=== PATIENT | female | born 1985 | race Caucasian/White ===

== ENCOUNTER → 2023-11-18 | Outpatient (CLI) | payer OTHER ==
--- NOTE | 2023-11-18 12:47 | MR ---
EXAMINATION TYPE: MR cspine/lspine wo con DATE OF EXAM: 11/18/2023 COMPARISON: None HISTORY: Neck and lower back pain/stiffness, headaches, BUE/BLE radiculopathy. Hx of injuries. CONTRAST: Performed utilizing 0 mL intravenous Gadavist gadolinium contrast. TECHNIQUE: Multiplanar multiecho imaging on a 3.0 Iqra magnet is performed through the cervical spin e. FINDINGS: The craniovertebral junction is normal. Vertebral body alignment is normal. C7-T1: No focal disc herniation or significant disc bulge is evident. No spinal canal stenosis or n eural foraminal stenosis is present. C6-7: No focal disc herniation or significant disc bulge is evident. No spinal canal stenosis or colby ral foraminal stenosis is present. C5-6: There is broad-based left paracentral disc bulging with mild to moderate anterior thecal sac co mpression. No cord contact is evident. There may be some mild cord deformity on the left. Neural fora men are patent.. C4-5: No focal disc herniation or significant disc bulge is evident. No spinal canal stenosis or colby ral foraminal stenosis is present. C3-4: There is a central disc bulge with moderate anterior thecal sac compression. This may have cord contact. No cord deformity is evident. No spinal canal stenosis is present. Neural foramen are paten t.. C2-3: Minimal central disc bulge is present with mild anterior thecal sac compression. No cord contac t is evident. No spinal canal stenosis or neural foraminal stenosis is present.. IMPRESSION: 1. Moderate broad left paracentral disc bulge at C5-6 with moderate thecal sac compression. Some mild cord deformity may be present. 2. Central disc bulge with moderate anterior thecal sac compression C3-4 may have cord contact withou t cord deformity. 3. Minimal C2-3 central disc bulge without cord contact or spinal canal stenosis. EXAMINATION TYPE: MR andrez/jacqueline wo con DATE OF EXAM: 11/18/2023 COMPARISON: HISTORY: Neck and lower back pain/stiffness, headaches, BUE/BLE radiculopathy. Hx of injuries. CONTRAST: 0 mL intravenous Gadavist. TECHNIQUE: Multiplanar, multisequence images of the lumbar spine were acquired. FINDINGS: Cord terminates at the L1 level. Vertebral body alignment is preserved. Disc heights are p reserved. Disc desiccation is present L3-4 mild L4-5. L5-S1: No significant disc bulge or disc herniation. No spinal canal stenosis. No foraminal stenosi s. L4-L5: No significant disc bulge or disc herniation. No spinal canal stenosis. No foraminal stenosi s. Minimal ligamentum flavum laxity is present without significant thecal sac compression. L3-L4: No significant disc bulge or disc herniation. No spinal canal stenosis. No foraminal stenosi s. Ligamentum flavum laxity is present with minimal right posterior lateral thecal sac compression. L2-L3: No significant disc bulge or disc herniation. No spinal canal stenosis. No foraminal stenosi s. L1-L2: No significant disc bulge or disc herniation. No spinal canal stenosis. No foraminal stenosi s. T12-L1: No significant disc bulge or disc herniation. No spinal canal stenosis. No foraminal stenos is. IMPRESSION: 1. No acute changes MRI lumbar spine. 2. Minimal ligamentum flavum laxity without significant thecal sac compression L3-4 L4-5. Minimal dis c desiccation is present at these levels as well. [facility], Workstation: [facility], 11/18/2023 12:45 PM
== END | disposition home or self-care (01) ==
LOC: RADMRIMAIN 10:24
PROVIDERS: ATTEND Family Medicine
DX: R51.9 Headache, unspecified (principal); M50.10 Cervical disc disorder with radiculopathy, unspecified cervical region; M51.16 Intervertebral disc disorders with radiculopathy, lumbar region
CPT/HCPCS: 72141; 72148